=== PATIENT | male | born 1960 | race Caucasian/White ===

== ENCOUNTER 2018-07-09 21:57 | Emergency (ER) | payer MEDICAID, SELFPAY ==
[2018-07-09 21:58] VITALS: BP 116/65; PULSE 68; RESP 18; TEMP 36.6; O2SAT 98; BMI 21.4
[2018-07-09 22:03] VITALS: BMI 21.4
--- NOTE | 2018-07-09 22:04 | CT_ITS ---
CT CERVICAL SPINE WITHOUT CONTRAST CT RECONSTRUCTIONS HISTORY:Neck pain following injury, blunt trauma, left-sided neck pain ORDERING PHYSICIAN: Jez Blas MD PATIENT AGE: 57 years COMPARISON: None Technique: All CT scans at the facility use one or more dose reduction, viz: automated exposure control, ma/kV adjustment per patient size (including targeted exams where dose is matched to indication, i.e. head), or iterative reconstruction technique PROCEDURE: Axial spiral CT scanning performed of the cervical spine beginning at the base of the skull and continuing to the upper T-spine. 3-D multiplanar reconstruction with 3-D manipulation of volumetric data set in image rendering was completed by the radiologist and/or technologist with the supervision of the radiologist on independent workstation. FINDINGS: Normal alignment. No fracture or dislocation. Multilevel cervical spondylosis. Degenerative disc disease C4-C5. Degenerative disc disease C5-C6 with bulging disc and disc osteophyte complex eccentric toward the left with canal stenosis and bilateral foraminal narrowing. C6-C7: Degenerative disc disease with bulging disc and borderline narrowing. No acute finding in the lung apices. Postsurgical changes of the right mandible. Near complete opacification of the right maxillary sinus with mild mucosal thickening of the left maxillary sinus. IMPRESSION: 1. No acute fracture. 2. Cervical spondylosis with canal stenosis. 3. Maxillary sinus disease right more extensive than left
--- NOTE | 2018-07-09 22:04 | CT_ITS ---
CT head/brain wo con HISTORY: Headache, contusion, blunt trauma with injury and pain, loss of consciousness ITS.REASON: fall with + LOC ORDERING PHYSICIAN: Jez Blas MD PATIENT AGE: 57 years COMPARISON: None TECHNIQUE: Axial images obtained without contrast. Brain and bone windows reviewed. All CT scans at the facility use one or more dose reduction, viz: automated exposure control, ma/kV adjustment per patient size (including targeted exams where dose is matched to indication, i.e. head), or iterative reconstruction technique. FINDINGS: No midline shift, mass effect, intracranial hemorrhage, hydrocephalus, or extra-axial fluid collection is evident. There is mild generalized atrophy The calvarium has an unremarkable appearance. No mastoid effusion. There is opacification of the superior aspect of the maxillary sinus and mucosal thickening left maxillary sinus. IMPRESSION: No acute intracranial findings Paranasal sinus disease
--- NOTE | 2018-07-09 22:04 | XR_ITS ---
XR pelvis 1-2V HISTORY: Fall with injury and pain ITS.REASON: fall ORDERING PHYSICIAN: Jez Blas MD PATIENT AGE: 57 years Comparison: None FINDINGS: No fracture or dislocation is evident. No significant degenerative change. No lytic or blastic change. The SI joints have an unremarkable appearance. Unremarkable soft tissues. There is a Duval catheter present IMPRESSION: No acute finding
--- NOTE | 2018-07-09 22:04 | XR_ITS ---
XR chest portable HISTORY: Posttraumatic pain ITS.REASON: fall ORDERING PHYSICIAN: Jez Blas MD PATIENT AGE: 57 years COMPARISON: None FINDINGS: Unremarkable cardiovascular structures. No lobar consolidation or collapse. There is slight increased density in the left apex probably due to summation density of the ribs and. Nodular opacity overlies the left fifth rib anteriorly may be due to nipple shadow. Pulmonary nodule is not excluded and follow-up is suggested. There is contour deformity of the left fourth rib suggesting an old rib fracture. There are no previous exams available for comparison. Rib detail be of further value. IMPRESSION: No definite acute finding. See above for details Suspect left fourth rib fracture which may be old. Please correlate clinical findings. Suggest PA and lateral chest for
[2018-07-09 22:15] LABS: Microscopic, Urine URINE MICROSCOPIC (MICROSCOPIC)
[2018-07-09 22:24] LABS: Appearance,Urine CLEAR (Clear); Bilirubin,Urine Negative (Negative); Blood, Urine Negative (Negative); Color,Urine YELLOW (Yellow); Glucose,Urine (UA) Negative (Negative); Ketones,Urine Negative (Negative); Leukocyte Esterase,Urine Negative (Negative); Nitrate,Urine Negative (Negative); Protein,Urine Negative (Negative); Urobilinogen,Urine 0.2 EU/dl (0.2)
--- NOTE | 2018-07-09 22:24 | PC.NURSE ---
Pt here via EMS for falling hitting head, unknown LOC, pt denies any new pain, neuro intact, pt states he has chronic knee and low back pain. Pt on backboard with c-collar on. Pt denies injury to neck or head.
[2018-07-09 22:27] LABS: Amorphous Sediment,Urine Trace /lpf; Squamous Epithelial Cell,Urine Occasional #/hpf (0-5)
--- NOTE | 2018-07-09 22:27 | PC.NURSE ---
Pt unhooked c-callor and removed it refusing to wear. pt also unhooked backboard and refuses to stay on it.
[2018-07-09 22:29] LABS: Amphetamine/Metha Screen,Urine Negative ng/mL (<1000); Barbiturates Screen,Urine Negative ng/mL (<200); Benzodiazepines Screen,Urine Positive ng/mL (<200); Cannabinoid Screen,Urine Negative ng/mL (<50); Cocaine Screen,Urine Negative ng/mL (<300); Methadone Screen,Urine Negative ng/mL (<300); Opiate Screen,Urine Positive ng/mL (<300); Phencyclidine Screen,Urine Negative ng/mL (<25)
[2018-07-09 22:31] LABS: Basophils # 0.1 K/mm3 (0-0.2); Basophils % 1.4 % (0.1-2.0); Eosinophils # 0.4 K/mm3 (0.0-0.4); Eosinophils % 6.4 % (0.1-12.0); Hematocrit 40.9 % (42.0-52.0); Hemoglobin 14.1 g/dL (14.1-18.0); Lymphocytes # 2.4 K/mm3 (0.7-4.5); Lymphocytes % 36.7 % (10-50); Mean Corpuscular HGB Conc 34.5 g/dL (31.8-35.4); Mean Corpuscular Hemoglobin 36.7 pg (27.0-31.2); Mean Corpuscular Volume 106.2 fl (80-94); Mean Platelet Volume 6.8 fl (7.4-10.4); Monocytes # 0.4 K/mm3 (0.1-1.0); Monocytes % 6.3 % (1.7-9.3); Neutrophils # 3.2 K/mm3 (1.8-7.8); Neutrophils % 49.3 % (37.0-80.0); Platelet Count 249 K/mm3 (142-424); Red Blood Count 3.85 M/mm3 (4.60-6.20); White Blood Count 6.5 K/mm3 (4.8-10.8)
[2018-07-09 22:34] LABS: Alanine Aminotransferase 28 U/L (12-78); Albumin Level 3.5 gm/dL (3.4-5.0); Albumin/Globulin Ratio 1.2 (1.1-1.8); Alkaline Phosphatase 68 U/L (46-116); Anion Gap 16.7 mEq/L (5-15); Aspartate Amino Transferase 30 U/L (15-37); Bilirubin,Total 0.4 mg/dL (0.2-1.0); Blood Urea Nitrogen 9 mg/dL (7-18); Calcium 8.4 mg/dL (8.5-10.1); Carbon Dioxide 24 mmol/L (21.0-32.0); Chloride 107 mmol/L (98-107); Creatinine Clearance Estimated 120 mL/min (50-200); Creatinine,Serum 0.61 mg/dL (0.70-1.30); Estimated Glomerular Filt Rate 137 ml/min (>60); Ethyl Alcohol 243 mg/dL (0-99); GFR (African American) 166 ML/MIN (>60); Glucose 83 mg/dL (74-106); Potassium 3.7 mmoL/L (3.5-5.1); Sodium 144 mmol/L (136-145); Total Protein,Serum 6.5 gm/dL (6.4-8.2)
[2018-07-09 22:52] VITALS: BP 113/78; PULSE 78; RESP 16; O2SAT 97
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
--- NOTE | 2018-07-09 22:58 | ED_ITS ---
ED Disposition Clinical Impression: Intoxication with opioids, Alcohol intoxication Disposition: Home, Self-Care Condition on Discharge: Fair Instructions: Alcohol Use Disorder, DI for Drug Overdose in Adults Referrals: Provider,Referral, [Primary Care Provider] - Time of Disposition: 06:15 - Critical Care Critical Care Time: No Attestation: On 07/09/18, the high probability of a clinically significant, sudden or life threatening deterioration of the following system(s) required my full and direct attention, intervention and personal management. The time I documented below is in addition to time spent performing reported procedures but includes the following listed in this critical care notation. Medical Decision Making - Medical Records Medical records reviewed: Yes: I reviewed the patient's medical records. - Alberto Inquiry Pt receiving controlled substance: No Alberto was queried for this patient: No Vital Signs: 07/09/18 21:58 07/09/18 22:52 07/10/18 00:01 Temperature 97.8 F Temperature Source Oral Pulse Rate [Right Brachial] 68 78 76 Respiratory Rate 18 16 16 Blood Pressure [Right Arm] 116/65 113/78 108/73 L Blood Pressure Mean [Right Arm] 82 89 84 Blood Pressure Source [Right Arm] Automatic Cuff Automatic Cuff Automatic Cuff Blood Pressure Position [Right Arm] Sitting Sitting Sitting 02 Sat by Pulse Oximetry 98 97 95 Oxygen Delivery Method Room Air Room Air Room Air 07/10/18 00:53 Temperature Temperature Source Pulse Rate [Right Brachial] 62 Respiratory Rate 16 Blood Pressure [Right Arm] 118/80 Blood Pressure Mean [Right Arm] 92 Blood Pressure Source [Right Arm] Automatic Cuff Blood Pressure Position [Right Arm] Sitting 02 Sat by Pulse Oximetry 95 Oxygen Delivery Method Room Air - Lab Data Lab results reviewed: Yes: I reviewed the patient's lab results. Lab Results 07/09/18 22:01: WBC 6.5, RBC 3.85 L, Hgb 14.1, Hct 40.9 L, MCV 106.2 H, MCH 36.7 H, MCHC 34.5, RDW 12.0, Plt Count 249, MPV 6.8 L, Neut % (Auto) 49.3, Lymph % (Auto) 36.7, [place] % (Auto) 6.3, Eos % (Auto) 6.4, Baso % (Auto) 1.4, Neut # (A uto) 3.2, Lymph # (Auto) 2.4, [place] # (Auto) 0.4, Eos # (Auto) 0.4, Baso # (Auto) 0.1 07/09/18 22:01: Sodium 144, Potassium 3.7, Chloride 107, Carbon Dioxide 24, A nion Gap 16.7 H, BUN 9, Creatinine 0.61 L, Estimated Creat Clear 120, Estimated GFR 137, Est GFR ( Amer) 166, Glucose 83, Calcium 8.4 L, Total Bilirubin 0.4, AST 30, ALT 28, Alkaline Phosphatase 68, Total Protein 6.5, Albumin 3.5, Globulin 3.0, Albumin/Globulin Ratio 1.2, Plasma/Serum Alcohol 243 H 07/09/18 22:05: Urine Color Yellow, Urine Appearance Clear, Urine pH 6.0, Ur Specific [place] 1.010, Urine Protein Negative, Urine Glucose (UA) Negative, Urine Ketones Negative, Urine Blood Negative, Urine Nitrate Negative, Urine Bilirubin Negative, Urine Urobilinogen 0.2, Ur Leukocyte Esterase Negative, Ur Squamous Epith Cells Occasional, Amorphous Sediment Trace 07/09/18 22:05: Urine Opiates Screen Positive H, Urine Methadone Screen Negative, Ur Barbituates Screen Negative, Ur Phencyclidine Scrn Negative, Ur Amphetamines Screen Negative, U Benzodiazepines Scrn Positive H, Urine Cocaine Screen Negative, U Marijuana (THC) Screen Negative Result diagrams: 07/09/18 22:01 07/09/18 2
[2018-07-10 00:01] VITALS: BP 108/73; PULSE 76; RESP 16; O2SAT 95
[2018-07-10 00:53] VITALS: BP 118/80; PULSE 62; RESP 16; O2SAT 95
[2018-07-10 06:13] VITALS: BP 120/76; PULSE 78; RESP 14; TEMP 36.8; O2SAT 98
== END 2018-07-10 06:19 | disposition home or self-care (01) ==
PROVIDERS: Emergency Provider Emergency Medicine
DX: F10.929 Alcohol use, unspecified with intoxication, unspecified (principal); F11.929 Opioid use, unspecified with intoxication, unspecified
CPT/HCPCS: 70450; 71045; 72125; 72170; 80053; 80305; 81001; 85025; 93005; 99284

== ENCOUNTER → 2018-07-25 07:35 | Outpatient (CLI) | payer MEDICAID, SELFPAY ==
--- NOTE | 2018-07-25 07:52 | NVE_ITS ---
Venous Exam Indications: 729.81 Swelling of limb. IMPRESSIONS 1. There is no evidence of significant Reflux. 2. No evidence of deep or superficial vein thrombosis involving the left lower extremity 3. 5.6 cm complex lesion seen mid to prox medial calf muscle. ? hematoma. Additional testing needed. Consider MRI for further evaluation History: Risk factors: Current tobacco use. Left lower extremity venous duplex evaluation. Doppler flow study including spectral analysis, color and fry scale imaging. Location: Vascular laboratory. Patient status: Outpatient. CRITICAL FINDINGS - Reported to: Dr Blas - 07/25/2018 - 08:30am Tables: Venous flow and imaging: + +-------+ + Location Overall Flow properties + +-------+ + Left common femoral Patent Normal phasicity; spontaneous; normal augmentation; compressible + +-------+ + Left saphenofemoral junction Patent Compressible + +-------+ + Left profunda femoral Patent Compressible + +-------+ + Left femoral Patent Normal phasicity; spontaneous; normal augmentation; compressible + +-------+ + Left greater saphenous Patent Normal phasicity; spontaneous; normal augmentation; compressible + +-------+ + Left popliteal Patent Normal phasicity; spontaneous; normal augmentation; compressible + +-------+ + Left posterior tibial Patent Compressible + +-------+ + Left peroneal Patent Compressible + +-------+ + Left gastrocnemius Patent Compressible + +-------+ + Left soleal Patent Compressible + +-------+ + (Report amended ) Electronically signed by: Dinesh Eng [id number]
== END ==
PROVIDERS: Visit Provider Emergency Medicine
DX: M79.662 Pain in left lower leg (principal)
CPT/HCPCS: 93971

== ENCOUNTER 2023-11-11 16:41 | Emergency (ER) | payer MEDICAID, SELFPAY ==
[2023-11-11] VITALS (7 sets, daily range): BP systolic 91–137; BP diastolic 54–96; PULSE 88–116; RESP 16–20; TEMP 36.7–36.8; O2SAT 98; BMI 19.7
--- NOTE | 2023-11-11 17:02 | PC.NURSE ---
Priscilla, peer support at bedside
--- NOTE | 2023-11-11 17:07 | PC.NURSE ---
speaking with MONICA on the phone, Vic Beasley.
--- NOTE | 2023-11-11 17:34 | ED_ITS ---
Discharge Plan Disposition Patient Disposition: Admitted Chief Complaint: Altered Mental Status Prescriptions Prescriptions: No Action hydrocodone-acetaminophen 1 EACH tablet 1 tab PO QID PRN (Reason: Moderate Pain) 2 Days Qty: 8 0RF Referrals Follow up/Referrals: Provider,Referral, [Primary Care Provider] - See instructions Clinical Impressions Clinical Impression: Acute encephalopathy, Polypharmacy, Metastatic cancer, Cancer associated pain Instructions Patient Instructions: DI for Altered Mental Status Print Language Print Language: [place] Discharge ED Provider: Zhao Henning General Adult HPI General Chief complaint: Altered Mental Status Stated complaint: overdose Time Seen by Provider: 11/11/23 16:42 Mode of Arrival: EMS Source of Information: Patient and EMS Limitations: No Limitations Description of Symptoms (Recalled from ER Triage Doc. by RN): EMS reports they were called due to his friends reporting the pt told them he took a double dose of his daily meds. EMS states the friend admin narcan but he was never unconscious. On arrival pt states he did not take any extra medication today. He does report smoking marijauna multiple times throughout the day. pt is alert to self and place but hard to follow. pt is very hyperactive with jerking movements. pt currently has a dx of stage 4 colorectal cancer. pt is still receiving chemo. History of Present Illness HPI narrative: Patient is a 63-year-old brought in for altered mental status. He is acutely altered and his history is significantly limited secondary to his clinical state. A lot of history was obtained from his power of litigation attorney associate whose name is less Ladarius. History also obtained by EMS. EMS brought the patient in after he was with some friends at [facility] and they said he was acting bizarre. They gave him Narcan but he was never unresponsive or having any difficulty breathing no significant change. There was apparently history from one of his friends that he took more medications than he is supposed to. Also history was obtained from the medical records from [facility]. Patient is followed there for stage IV metastatic colon adenocarcinoma. He currently gets Lonsurf and a Avastin in addition to oxycodone long-acting morphine gabapentin. According to the last he was playing in a pool tournament yesterday evening and even won several games and he is sure that the patient simply took too many of his medications. He is also followed extensively by palliative care [facility] and they have been trying to put him on palliative care for an extensive period of time and they have been increasing his opioid pain medications for his chronic pain. The patient is not currently on hospice however he is DNR and DNI. His power of litigation attorney associate states that he does not want extensive testing and that his current state is secondary to a recent medication that they have added because he has been intermittently altered since starting that medication and subsequently snapped out of it. Related Data Previous Rx's ?Medication ?Instructions ?Recorded hydrocodone 7.5 mg-acetaminophen 1 tab PO QID PRN Moderate Pain 2 07/24/18 325 mg tablet days #8 tabs Allergies Allergy/AdvReac Type Severity Reaction Status Date / Time No Known Allergies Allergy Verified 07/25/18 09:25 [facility] Disclaimer: The information contained in this section may have been updated after the patient was seen, as this information can be updated by other users. Social History Smoking Status: Current every day smoker alcohol intake: current alcohol intake frequency: 3 or more drinks per day substance use type: marijuana current occupational status: disabled Travel in the last 8 weeks: Inside the [facility] housing: house Other Medical History Have you received the Flu Vaccine for this season: No Have you received the Pneumonia Vaccine: No ROS Obtained: Yes All systems reviewed & no additional complaints except as docu mented Physical Exam General General appearance: alert and in no apparent distress Respiratory Respiratory exam: Present normal lung sounds bilaterally and respiratory distress Cardiovascular Cardiovascular exam: Present regular rate and normal rhythm Abdominal Exam Abdominal exam: Present soft; Absent distention or tenderness Neurological Exam Neurological exam: Present alert, CN II-XII intact and normal gait; Absent oriented X3 (gcs 13 ) or motor sensory deficit Medical Decision Making Medical Records Screening: Per USPSTF and CDC recommendations, given the prevalence of disease in our region, it is our hospital?s policy to screen for HIV and viral Hepatitis for all patients aged 18 and over and those with ongoing risk factors. Alberto Inquiry Pt receiving controlled substance: No Vital Signs: 11/11/23 16:44 11/11/23 16:52 11/11/23 16:56 Temperature 98.3 F Temperature Source Oral Pulse Rate 108 H 112 H Pulse Rate [Right] 116 H Respiratory Rate 20 Blood Pressure 135/96 H 137/75 Blood Pressure [Right Arm] 135/96 H Blood Pressure Mean Blood Pressure Mean [Right Arm] 109 Blood Pressure Source [Right Arm] Automatic Cuff Blood Pressure Position [Right Arm] Sitting 02 Sat by Pulse Oximetry 98 98 98 Oxygen Delivery Method Room Air 11/11/23 17:30 Temperature Temperature Source Pulse Rate Pulse Rate [Right] Respiratory Rate Blood Pressure 116/79 Blood Pressure [Right Arm] Blood Pressure Mean 91 Blood Pressure Mean [Right Arm] Blood Pressure Source [Right Arm] Blood Pressure Position [Right Arm] 02 Sat by Pulse Oximetry Oxygen Delivery Method Orders (Tests/Meds): ORDERS Category Date Time Status HIV (1&2) Antibody Rapid Stat Lab 11/11/23 17:03 Ordered Hep C Ab with Reflex to RNA Stat Lab 11/11/23 17:03 Ordered Medical Decision Narrative: 63-year-old with above history and physical patient is acutely altered and after history obtained from the patient's friend and power of litigation attorney associate this is consistent with polypharmacy from all the medications that he is on to treat his chronic pain. He is also been extensively followed by palliative care not yet definitively on hospice but they are moving in that direction. After talking to his power of litigation attorney associate he does not want an extensive medical evaluation and intervention done other than observation right now. He states that if he does not improve that we can consider other workups after that. I think this is a reasonable course of action with patient's history of metastatic cancer and palliative care. He is not in a state to go home at the moment. I will discuss the case with hospital medicine and admit for observation. Critical Care Critical Care Time Critical Care Time: No
--- NOTE | 2023-11-11 18:30 | PC.NURSE ---
call made to warehouse assistant for bed placement
[2023-11-11] MEDS: NALOXONE HCL 4MG SPRAY 4 MG NS (19:01)
== END 2023-11-11 19:11 | disposition home or self-care (01) ==
LOC: ER 17:59 → 2ND 18:43
PROVIDERS: Emergency Provider Student in an Organized Health Care Education/Training Program
DX: G89.3 Neoplasm related pain (acute) (chronic) (principal); C79.9 Secondary malignant neoplasm of unspecified site; G93.40 Encephalopathy, unspecified; R41.82 Altered mental status, unspecified; Z79.899 Other long term (current) drug therapy
CPT/HCPCS: 99283